=== PATIENT | female | born 1975 | race Caucasian/White ===

== ENCOUNTER 2023-01-30 09:30 | Emergency (ER) | payer OTHER ==
[~2023-01-30] VITALS: Ht 165.1 cm; Wt 104.3 kg
[2023-01-30] MEDS ORDERED: BUPROPION XL300 MG PO (09:42)
[2023-01-30] MEDS ORDERED: PREDNISONE20 MG PO (13:24)
[2023-01-30 13:34] VITALS: BP 113/82
== END 2023-01-30 13:36 | disposition home or self-care (01) ==
LOC: ED 09:30
DX: J45.909 Unspecified asthma, uncomplicated (principal); Z20.822 Contact with and (suspected) exposure to COVID-19; Z88.6 Allergy status to analgesic agent; Z79.899 Other long term (current) drug therapy
CPT/HCPCS: 36415; 71045; 80053; 85025; 87502; 93005; 93010; 94640; 96374; 96375; 99285-25; C9803; J1200; J2930; U0003